=== PATIENT | male | born 1995 | race Caucasian/White ===

== ENCOUNTER 2023-06-07 15:45 | Emergency (ER) | payer OTHER ==
[~2023-06-07] VITALS: Ht 177.8 cm; Wt 104.3 kg
[~2023-06-07 15:45] MED LIST: HYDACE5 PO
[2023-06-07] MEDS ORDERED: Percocet 5-3251 EACH PO (17:47)
[2023-06-07 18:00] VITALS: BP 132/77
== END 2023-06-07 18:13 | disposition home or self-care (01) ==
LOC: ER 15:45
DX: T20.24XA Burn of second degree of nose (septum), initial encounter (principal); T28.0XXA Burn of mouth and pharynx, initial encounter; T20.26XA Burn of second degree of forehead and cheek, initial encounter; T20.07XA Burn of unspecified degree of neck, initial encounter; T31.0 Burns involving less than 10% of body surface; F10.129 Alcohol abuse with intoxication, unspecified; F17.220 Nicotine dependence, chewing tobacco, uncomplicated; X03.0XXA Exposure to flames in controlled fire, not in building or structure, initial encounter
CPT/HCPCS: 90471; 90714; 99283-25; A9270